=== PATIENT | male | born 1990 | race Hispanic/Latino ===

== ENCOUNTER 2020-10-30 11:41 | Emergency (ER) | payer SELFPAY ==
--- NOTE | ~2020-10-30 | XR_ITS ---
EXAMINATION: XR foot LT min 3V DATE: 10/30/2020 13:14 INDICATION: Left foot injury. TECHNIQUE: 4 views of left foot were obtained. COMPARISON: None. FINDINGS: Bone alignment is normal. No fracture. Joint spaces are well maintained. There is dorsal la teral midfoot soft tissue swelling. IMPRESSION: 1. No fracture or radiopaque foreign body. Reviewed, dictated and finalized at location A.
[2020-10-30 12:04] VITALS: BP 140/83; PULSE 63; RESP 14; TEMP 36.6; O2SAT 100
--- NOTE | 2020-10-30 13:02 | ED.WOUNDLAC ---
HPI - Wound/Laceration General Chief Complaint: Wound/Laceration Stated Complaint: laceration left foot Time Seen by Provider: 10/30/20 12:37 Source: patient and RN notes reviewed Mode of arrival: ambulatory Limitations: no limitations History of Present Illness HPI narrative: This is a 30 year old male who presents for evaluation of left foot wood. He states around 7pm last night he was playing with his son when he cut his left foot on a piece of metal. He was unsure if needed stitches. She denies numbness, tingling or weakness. He states his last tetanus has been in past 5 years. Related Data Allergies Allergy/AdvReac Type Severity Reaction Status Date / Time No Known Allergies Allergy Verified 10/30/20 12:08 Review of Systems Review of Systems: All systems reviewed & are unremarkable except as noted in HPI and below PMFSH Past Medical History Medical History (Updated 10/30/20 @ 14:06 by Julieta Zuñiga MD) Patient denies medical problems Surgical History Surgical History (Updated 10/30/20 @ 13:02 by Julieta Zuñiga MD) No pertinent past surgical history Social History Social History (Updated 10/30/20 @ 13:02 by Julieta Zuñiga MD) Smoking status: Never smoker Gender identity (if verbalized by the patient): Male Exam Const: General: no acute distress and alert Orientation/consciousness: patient oriented x3 Eyes: EOM: EOMs intact bilaterally Resp: Effort & Inspection: normal respiratory effort Auscultation: clear to auscultation bilaterally Extrem: Other: FROM- left foot with 4 cm ellipitical laceration to subcutaneous tissue, no bleeding. Psych: Mental Status: mental status grossly normal Affect: normal affect Course Reevaluation(s) Reevaluation #1: I discussed with patient that since he presented greater than 12 hours after injury I do not recommend closing wound with stitches. He states he understands this is due to increase risk in infection. I discussed his wound will heal although it may take longer. Date: 10/30/20 Time: 14:02 Vital Signs Vital signs: Vital Signs Temperature 97.9 F 10/30/20 12:04 Pulse Rate 63 10/30/20 12:04 Respiratory Rate 14 10/30/20 12:04 Blood Pressure 140/83 10/30/20 12:04 Pulse Oximetry 100 10/30/20 12:04 Temperature 97.9 F 10/30/20 12:04 Pulse Rate 60 10/30/20 13:25 Respiratory Rate 14 10/30/20 13:25 Blood Pressure 126/86 10/30/20 13:25 Pulse Oximetry 98 10/30/20 13:25 Procedures Laceration Laceration 1: Date: 10/30/20 Time: 14:04 Site: lower extremity (left foot) Size (cm): 4 Description: linear Depth: simple, single layer Local Anesthetic: none Pre-repair: wound explored and irrigated ====== Skin Level ====== Skin layer closed with: steri strips (tried to approximate wound egdes with steri strips. not completely clsed) ====== Subcutaneous Layer ====== ====== Muscle Layer ====== ====== Tendon Layer ====== Discharge Plan Discharge Clinical Impression: Laceration of dorsum of left foot Patient Disposition: Home, Self-Care Condition: Stable Instructions: Laceration (ED), Steristrips (ED), Laceration Without Closure (ED) Additional Instructions: Today you were evaluated for a wound on your foot. Unfortunately were unable to close completely. Keep your wound clean. Keep bandage with nonstick bandage daily. Pat clean every day. REturn to ER if you develop fever, redness, worsening pain or purulent drainage. Try to follow up with your primary care physician to make sure your wound is healing properly. Follow-up/Referrals: Jony Henderson MD [Physician] - PHYSICIAN,TEST MAN [Primary Care Provider] - Stand Alone Forms: Work/School Release IP
[2020-10-30 13:25] VITALS: BP 126/86; PULSE 60; RESP 14; O2SAT 98
== END 2020-10-30 14:25 | disposition home or self-care (01) ==
PROVIDERS: Emergency Provider General Practice
DX: S91.312A Laceration without foreign body, left foot, initial encounter (principal); W26.8XXA Contact with other sharp object(s), not elsewhere classified, initial encounter
CPT/HCPCS: 73630; 99283